=== PATIENT | female | born 1955 | race Two or more races ===

== ENCOUNTER 2024-11-04 09:14 | Inpatient (IN) | payer MEDICARE, MEDICAID ==
[~2024-11-04] VITALS: Ht 142.2 cm; Wt 78.9 kg
[2024-11-04 10:02] LABS: BASO # 0.1 10^3/uL (0.0-0.2); BASO % 0.5 % (0.0-1.0); EOS # 0.4 10^3/uL (0.0-0.5); EOS % 2.7 % (0.0-3.0); HEMATOCRIT 34.2 % (36.0-47.0); HEMOGLOBIN 11.2 g/dl (12.0-15.5); LYMPH # 2.7 10^3/uL (1.5-5.0); LYMPH % 19.6 % (24.0-44.0); MEAN CORPUSCULAR HEMOGLOBIN 32.7 pg (27.0-33.0); MEAN CORPUSCULAR HGB CONC 32.7 g/dl (32.0-36.5); MEAN CORPUSCULAR VOLUME 99.7 fl (80.0-96.0); MONO # 1.2 10^3/uL (0.0-0.8); MONO % 8.5 % (2.0-8.0); NEUTROPHILS # 9.3 10^3/uL (1.5-8.5); NEUTROPHILS % 68.1 % (36.0-66.0); PLATELET COUNT, AUTOMATED 242 10^3/uL (150-450); RED BLOOD COUNT 3.43 10^6/uL (4.00-5.40); WHITE BLOOD COUNT 13.7 10^3/uL (4.0-10.0)
[2024-11-04] MEDS: NS 500 ML IV ONE ×2 (10:33→15:34)
[2024-11-04] MEDS: ONDANSETRON 4MG 2ML VIAL IV ONE (10:33)
[2024-11-04 10:36] LABS: BLOOD UREA NITROGEN 17 MG/DL (9-23); CALCIUM LEVEL 8.4 MG/DL (8.3-10.6); CARBON DIOXIDE LEVEL 30 MMOL/L (20-31); CHLORIDE LEVEL 94 MMOL/L (98-107); GLOMERULAR FILTRATION RATE 17.2 (>45); GLUCOSE, FASTING 107 MG/DL (74-106); POTASSIUM SERUM 3.2 MMOL/L (3.5-5.1); SODIUM LEVEL 136 MMOL/L (136-145); THYROID STIMULATING HORMONE 4.011 uIU/ML (0.55-4.78)
[2024-11-04 11:45] LABS: ALBUMIN 3.1 G/DL (3.2-5.2); ALKALINE PHOSPHATASE 131 U/L (35-104); ALT/SGPT 26 U/L (7.0-40); AST/SGOT 15 U/L (<34); BILIRUBIN,DIRECT 0.1 MG/DL (<0.4); BILIRUBIN,TOTAL 0.4 MG/DL (0.3-1.2); LIPASE 35 U/L (12-53); TOTAL PROTEIN 7.5 G/DL (5.7-8.2)
[2024-11-04] MEDS ORDERED: LevoFLOXacin IV 750 MG in IV 1 EA IV ONE (15:35)
[2024-11-04] MEDS: ACETAMINOPHEN *IV* 1,000 MG in IV 1 EA IV ONE (15:35)
[2024-11-04] MEDS ORDERED: CEFEPIME HCL 2 GM in DEXTROSE 5% (D5W) ADV/MINI-BAG 50 ML IV ONE (15:35)
[2024-11-04 15:42] LABS: PROCALCITONIN 0.27 ng/ml
[2024-11-04 16:26] LABS: CK-MB VALUE MASS < 1.0 NG/ML (<3.6)
[2024-11-04 16:29] LABS: CPK CREATINE PHOSPHOKINASE 136 U/L (34-145); MB/CK RELATIVE INDEX 0.73 (< OR =4)
[2024-11-04 16:33] LABS: VENOUS BASE EXCESS 0.3 (-2.0-2.0); VENOUS O2 SATURATION 98.3 % (60.0-80.0); VENOUS PARTIAL PRESSURE CO2 35.7 mmHg (38.0-50.0); VENOUS PARTIAL PRESSURE O2 113.8 mmHg (30.0-50.0); VENOUS PH 7.446 UNITS (7.330-7.430); VENOUS STANDARD HCO3 24.8 MMOL/L; VENOUS TOTAL CO2 25.1 MMOL/L (24.0-28.0)
[2024-11-04] MEDS: cefTRIAXone SOD 2 GM in DEXTROSE 5% (D5W) ADV/MINI-BAG 50 ML IV ONE (16:52)
[2024-11-04 17:02] LABS: CK-MB VALUE MASS < 1.0 NG/ML (<3.6)
[2024-11-04 17:03] LABS: CPK CREATINE PHOSPHOKINASE 112 U/L (34-145); MB/CK RELATIVE INDEX 0.89 (< OR =4)
[2024-11-04] MEDS: NS 0.9% IV STA (17:28)
[2024-11-04] MEDS: [UNRECOGNIZED DRUG - OTHER] IV STA (17:28)
[2024-11-04] MEDS: AZITHROMYCIN INJ 500 MG, VIAL MATE ADAPTER 1 EACH in D5W 250 ML IV ONE (17:29)
[2024-11-04] MEDS ORDERED: HYDR-3363 PO (17:33)
[2024-11-04] MEDS ORDERED: SEVE800T3 PO (17:33)
[2024-11-04] MEDS ORDERED: AMLO1TAB24 PO (17:33)
[2024-11-04] MEDS ORDERED: CARV25TA PO (17:33)
[2024-11-04] MEDS ORDERED: HOME MED LIST COMPLETE! XX SCH (17:35)
[2024-11-04] MEDS: (RENVELA) SEVELAMER **CARBONate** 800 MG TAB PO SCH (18:51)
[2024-11-04] MEDS ORDERED: ALBUTEROL 90 MCG/ACT 8GM HFA INHALER INH PRN (19:55)
[2024-11-04] MEDS: PIPERACILLIN/TAZOBACTAM SOD 4.5 GM in DEXTROSE 5% (D5W) ADV/MINI-BAG 50 ML IV SCH (21:10)
[2024-11-04] MEDS: CARVedilol 12.5 MG TAB PO SCH (21:10)
[2024-11-04] MEDS: CALCITRIOL 0.25 MCG CAP (S0169) PO SCH (21:48)
[2024-11-04 22:00] VITALS: O2SAT 94
[2024-11-04 22:19] VITALS: BP 136/78; TEMP 98.2; O2SAT 94
[2024-11-04 22:41] VITALS: O2SAT 94
[2024-11-04 23:29] VITALS: BP 115/53; TEMP 98.2; O2SAT 94
[2024-11-04] MEDS: LEVALBUTEROL 1.25 MG 0.5ML CONCENTRATE NEB INH SCH (23:32)
[2024-11-05] VITALS (24 sets, daily range): BP systolic 85–113; BP diastolic 54–62; TEMP 98.2–99.3; O2SAT 92–100
[2024-11-05 05:54] LABS: BASO # 0.1 10^3/uL (0.0-0.2); BASO % 0.3 % (0.0-1.0); EOS # 0.4 10^3/uL (0.0-0.5); EOS % 2.8 % (0.0-3.0); HEMATOCRIT 26.3 % (36.0-47.0); LYMPH # 2.1 10^3/uL (1.5-5.0); LYMPH % 14.2 % (24.0-44.0); MEAN CORPUSCULAR HEMOGLOBIN 32.3 pg (27.0-33.0); MEAN CORPUSCULAR HGB CONC 32.7 g/dl (32.0-36.5); MEAN CORPUSCULAR VOLUME 98.9 fl (80.0-96.0); MONO % 6.7 % (2.0-8.0); NEUTROPHILS # 10.9 10^3/uL (1.5-8.5); NEUTROPHILS % 75.5 % (36.0-66.0); PLATELET COUNT, AUTOMATED 205 10^3/uL (150-450); RED BLOOD COUNT 2.66 10^6/uL (4.00-5.40); WHITE BLOOD COUNT 14.4 10^3/uL (4.0-10.0)
[2024-11-05 06:09] LABS: HEMOGLOBIN 8.6 g/dl (12.0-15.5)
[2024-11-05 06:24] LABS: ALBUMIN 2.4 G/DL (3.2-5.2); CALCIUM LEVEL 8.3 MG/DL (8.3-10.6); CREATININE FOR GFR 4.62 MG/DL (0.55-1.30); GLOMERULAR FILTRATION RATE 9.8 (>45); MAGNESIUM LEVEL 1.6 MG/DL (1.8-2.4); PHOSPHORUS LEVEL 5.1 MG/DL (2.4-5.1); PROCALCITONIN 0.79 ng/ml
[2024-11-05] MEDS: MAG SULF 1GM/100ML (MAG RUN) 1 GM in IV 1 EA IV SCH (09:40)
[2024-11-05] MEDS: HEPARIN SOD (PORCINE) 5000UNITS/ML 1ML VIAL/SYRINGE SQ SCH (09:40)
[2024-11-05] MEDS: ATORVASTATIN 20 MG TAB PO SCH (09:41)
[2024-11-05] MEDS: OMEPRAZOLE 20MG CAP PO SCH (09:41)
[2024-11-05 13:07] LABS: HEMATOCRIT 27.2 % (36.0-47.0); HEMOGLOBIN 8.7 g/dl (12.0-15.5); MEAN CORPUSCULAR HEMOGLOBIN 32.5 pg (27.0-33.0); MEAN CORPUSCULAR VOLUME 101.5 fl (80.0-96.0); PLATELET COUNT, AUTOMATED 221 10^3/uL (150-450); RED BLOOD COUNT 2.68 10^6/uL (4.00-5.40); WHITE BLOOD COUNT 12.7 10^3/uL (4.0-10.0)
[2024-11-06] VITALS (14 sets, daily range): BP systolic 106–125; BP diastolic 58–60; TEMP 97.8–98.1; O2SAT 93–96
[2024-11-06 06:01] LABS: BASO # 0.1 10^3/uL (0.0-0.2); BASO % 0.6 % (0.0-1.0); EOS # 0.8 10^3/uL (0.0-0.5); EOS % 8.3 % (0.0-3.0); HEMATOCRIT 26.9 % (36.0-47.0); HEMOGLOBIN 8.6 g/dl (12.0-15.5); LYMPH % 22.2 % (24.0-44.0); MEAN CORPUSCULAR HEMOGLOBIN 32.6 pg (27.0-33.0); MEAN CORPUSCULAR VOLUME 101.9 fl (80.0-96.0); MONO # 0.8 10^3/uL (0.0-0.8); MONO % 9.2 % (2.0-8.0); NEUTROPHILS # 5.4 10^3/uL (1.5-8.5); NEUTROPHILS % 59.4 % (36.0-66.0); PLATELET COUNT, AUTOMATED 208 10^3/uL (150-450); RED BLOOD COUNT 2.64 10^6/uL (4.00-5.40)
[2024-11-06 06:24] LABS: ALBUMIN 2.3 G/DL (3.2-5.2); CALCIUM LEVEL 8.3 MG/DL (8.3-10.6); CREATININE FOR GFR 6.36 MG/DL (0.55-1.30); GLOMERULAR FILTRATION RATE 6.7 (>45); MAGNESIUM LEVEL 2.9 MG/DL (1.8-2.4); PHOSPHORUS LEVEL 5.2 MG/DL (2.4-5.1); POTASSIUM SERUM 4.4 MMOL/L (3.5-5.1)
[2024-11-07 04:18] LABS: BASO % 0.3 % (0.0-1.0); EOS # 0.7 10^3/uL (0.0-0.5); EOS % 7.2 % (0.0-3.0); HEMATOCRIT 25.7 % (36.0-47.0); HEMOGLOBIN 8.4 g/dl (12.0-15.5); LYMPH # 2.3 10^3/uL (1.5-5.0); LYMPH % 22.3 % (24.0-44.0); MEAN CORPUSCULAR HEMOGLOBIN 33.1 pg (27.0-33.0); MEAN CORPUSCULAR HGB CONC 32.7 g/dl (32.0-36.5); MEAN CORPUSCULAR VOLUME 101.2 fl (80.0-96.0); MONO # 0.8 10^3/uL (0.0-0.8); MONO % 7.9 % (2.0-8.0); NEUTROPHILS # 6.4 10^3/uL (1.5-8.5); NEUTROPHILS % 61.9 % (36.0-66.0); PLATELET COUNT, AUTOMATED 219 10^3/uL (150-450); RED BLOOD COUNT 2.54 10^6/uL (4.00-5.40); WHITE BLOOD COUNT 10.3 10^3/uL (4.0-10.0)
[2024-11-07 04:40] LABS: ALBUMIN 2.3 G/DL (3.2-5.2); CREATININE FOR GFR 7.3 MG/DL (0.55-1.30); GLOMERULAR FILTRATION RATE 5.7 (>45); MAGNESIUM LEVEL 2.6 MG/DL (1.8-2.4); PHOSPHORUS LEVEL 5.5 MG/DL (2.4-5.1); POTASSIUM SERUM 4.8 MMOL/L (3.5-5.1)
[2024-11-07 04:41] VITALS: BP 109/64; TEMP 98.7; O2SAT 97
[2024-11-07] MEDS ORDERED: HEPARIN 1,000UNITS/ML 10ML VIAL (FOR RADIOLOGY & DIALYSIS ONLY) IV PRN (06:00)
[2024-11-07] MEDS ORDERED: SODIUM CHLORIDE 0.9% 1000 ML IV PRN (06:00)
[2024-11-07 07:42] VITALS: BP 129/74; TEMP 98; O2SAT 97
[2024-11-07] MEDS: HEPARIN 1,000UNITS/ML 10ML VIAL (FOR RADIOLOGY & DIALYSIS ONLY) XX SCH (10:55)
[2024-11-07 12:57] VITALS: BP 139/75; TEMP 97.9; O2SAT 96
[2024-11-07] MEDS: ACETAMINOPHEN 325 MG TAB PO PRN (13:31)
[2024-11-07 16:05] VITALS: BP 101/55; TEMP 98.2; O2SAT 94
[2024-11-07 20:34] VITALS: BP 119/67; TEMP 98.2; O2SAT 94
[2024-11-08 04:28] VITALS: BP 120/63; TEMP 98.5; O2SAT 96
[2024-11-08 04:39] LABS: BASO # 0.1 10^3/uL (0.0-0.2); BASO % 0.7 % (0.0-1.0); EOS # 0.8 10^3/uL (0.0-0.5); EOS % 8.8 % (0.0-3.0); HEMATOCRIT 28.9 % (36.0-47.0); HEMOGLOBIN 9.3 g/dl (12.0-15.5); LYMPH # 2.7 10^3/uL (1.5-5.0); LYMPH % 28.8 % (24.0-44.0); MEAN CORPUSCULAR HEMOGLOBIN 31.8 pg (27.0-33.0); MEAN CORPUSCULAR HGB CONC 32.2 g/dl (32.0-36.5); MONO # 0.8 10^3/uL (0.0-0.8); MONO % 8.2 % (2.0-8.0); NEUTROPHILS # 4.8 10^3/uL (1.5-8.5); NEUTROPHILS % 52.6 % (36.0-66.0); PLATELET COUNT, AUTOMATED 252 10^3/uL (150-450); RED BLOOD COUNT 2.92 10^6/uL (4.00-5.40); WHITE BLOOD COUNT 9.2 10^3/uL (4.0-10.0)
[2024-11-08 05:03] LABS: ALBUMIN 2.5 G/DL (3.2-5.2); CALCIUM LEVEL 8.5 MG/DL (8.3-10.6); CREATININE FOR GFR 4.67 MG/DL (0.55-1.30); GLOMERULAR FILTRATION RATE 9.7 (>45); MAGNESIUM LEVEL 2.1 MG/DL (1.8-2.4); PHOSPHORUS LEVEL 4.7 MG/DL (2.4-5.1); POTASSIUM SERUM 4.1 MMOL/L (3.5-5.1)
[2024-11-08 07:58] VITALS: BP 140/75; TEMP 97.8; O2SAT 94
[2024-11-08 08:55] VITALS: BP 140/75
[2024-11-08 10:34] LABS: PROCALCITONIN 0.59 ng/ml
[2024-11-08] MEDS ORDERED: ATOR1TAB21 PO (11:42)
[2024-11-08] MEDS ORDERED: CALC1CAP31 PO (11:42)
[2024-11-08] MEDS ORDERED: VENTAER INH (11:42)
[2024-11-08] MEDS ORDERED: OMEP-173 PO (11:42)
[2024-11-08] MEDS: CEFDINIR 300 MG CAP (OMNICEF) PO ONE (12:15)
== END 2024-11-08 15:50 | disposition home or self-care (01) | DRG 871 ==
LOC: M ED 09:14 → EDBD 09:14 → M ED INP 18:08 → M PCU 21:23
PROVIDERS: ADMIT Student in an Organized Health Care Education/Training Program; ATTEND Internal Medicine
DX: A41.9 Sepsis, unspecified organism (principal); N18.6 End stage renal disease; J18.9 Pneumonia, unspecified organism; I12.0 Hypertensive chronic kidney disease with stage 5 chronic kidney disease or end stage renal disease; N25.81 Secondary hyperparathyroidism of renal origin; E87.20 Acidosis, unspecified; R65.20 Severe sepsis without septic shock; D63.1 Anemia in chronic kidney disease; E78.5 Hyperlipidemia, unspecified; K21.9 Gastro-esophageal reflux disease without esophagitis; J45.909 Unspecified asthma, uncomplicated; G47.33 Obstructive sleep apnea (adult) (pediatric); N25.0 Renal osteodystrophy; Z98.41 Cataract extraction status, right eye; Z79.899 Other long term (current) drug therapy